=== PATIENT | female | born 1970 | race Caucasian/White ===

== ENCOUNTER 2017-08-21 16:11 | Emergency (ER) | payer OTHER ==
[~2017-08-21] VITALS: Ht 160 cm; Wt 85.3 kg
[~2017-08-21 16:11] MED LIST: ALPRAZOLAM0.25 M1 PO; SERTRALINE HCL50 MG PO
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
[2017-08-21 18:59] LABS: ABSOLUTE BASOPHIL COUNT 0 /CUMM (0.0-0.2); ABSOLUTE EOSINOPHIL COUNT 0 /CUMM (0.0-0.7); ABSOLUTE GRANULOCYTE CT 7.5 /CUMM (1.4-6.5); ABSOLUTE LYMPH COUNT 1.1 /CUMM (1.2-3.4); ABSOLUTE MONOCYTE COUNT 0.4 /CUMM (0.10-0.60); BASOPHIL % 0.1 % (0.0-2.0); EOSINOPHIL % 0.4 % (0-5); GRANULOCYTE % 82.4 % (42.2-75.2); HEMATOCRIT 41.4 % (37-47); MEAN CORPUSCULAR HGB CONC 33.3 G/DL (33.0-37.0); MEAN PLATELET VOLUME 7.5 FL (7.4-10.4); PLATELET COUNT 280 /CUMM (130-400); RBC DISTRIBUTION WIDTH 14.5 % (11.5-14.5); WHITE BLOOD CELL COUNT 9.2 /CUMM (4.8-10.8)
[2017-08-21 19:20] VITALS: BP 171/91
== END 2017-08-21 20:36 ==
LOC: ERH 16:11
PROVIDERS: Physician Assistant Medical
DX: F22 Delusional disorders (principal); F10.10 Alcohol abuse, uncomplicated
CPT/HCPCS: 80307; 81003; 81025; G0480

== ENCOUNTER 2017-09-18 05:50 | Emergency (ER) | payer OTHER ==
--- NOTE | 2017-09-18 06:01 | ED UPPER/LOWER EXTREMITY COMPL ---
History of Present Illness General Chief Complaint: Lower Extremity Problems Stated Complaint: RIGHT KNEE PAIN Source: patient Exam Limitations: no limitations Vital Signs & Intake/Output Vital Signs & Intake/Output . Allergies Coded Allergies: ciprofloxacin (From CIPRO) (Severe, RASH 08/21/17) sulfamethoxazole (From BACTRIM) (Severe, RASH 08/21/17) trimethoprim (From BACTRIM) (Severe, RASH 08/21/17) Reconcile Medications Alprazolam 0.25 MG TABLET 0.5-2 TAB PO PRN ANXIETY (Reported) Oxycodone HCl/Acetaminophen (Percocet 5-325 MG Tablet) 5 MG-325 MG TABLET 1 TAB PO 4XDP PRN PAIN six..[id number] Sertraline HCl 50 MG TABLET 1 TAB PO DAILY MENTAL HEALTH (Reported) Triage Nurses Notes Reviewed? yes Onset: Gradual Duration: week(s):, waxing and waning Timing: recent history Severity: moderate Pain/Injury Location: Right: Knee. Method of Injury: unknown Modifying Factors: Improves With: rest. Worsens With: movement. Associated Symptoms: right knee pain HPI: 47 yo woman presents with right knee pain x many months. She notes that it was getting worse over the past 2-3 days. "I was doing lots of bending over the weekend." No new trauma. She notes no significant swelling or redness or weakness. She is otherwise well. Past History Travel History Traveled to [place] past 21 day No Medical History Any Pertinent Medical History? see below for history Neurological: NONE EENT: NONE Cardiovascular: NONE Respiratory: NONE Gastrointestinal: NONE Hepatic: NONE Renal: NONE Musculoskeletal: NONE Psychiatric: anxiety, OCD Endocrine: NONE Blood Disorders: NONE Cancer(s): NONE COMPENSATION ASSOCIATE/Reproductive: NONE Surgical History Surgical History: none Psychosocial History What is your primary language Syriac Family History Hx Contributory? No Review of Systems Review of Systems Constitutional: Reports: no symptoms. EENTM: Reports: no symptoms. Respiratory: Reports: no symptoms. Cardiovascular: Reports: no symptoms. Gastrointestinal/Abdominal: Reports: no symptoms. Genitourinary: Reports: no symptoms. Musculoskeletal: Reports: no symptoms. Skin: Reports: no symptoms. Neurological/Psychological: Reports: no symptoms. Hematologic/Endocrine: Reports: no symptoms. Immunological: Reports: no symptoms. All Other Systems: Reviewed and Negative Physical Exam Physical Exam General Appearance: well developed/nourished, mild distress Head: atraumatic Eyes: Bilateral: PERRL, EOMI. Ears, Nose, Throat: normal pharynx, normal ENT inspection, hearing grossly normal Neck: normal inspection, supple Cardiovascular/Respiratory: regular rate/rhythm Back: normal inspection Knee Right: no signficiant effusion. ligaments are stable, but elicit discomfort with medial stress. pain also elicited with surinder test. Skin: intact, normal color, warm/dry Lymphatic: no anterior cervical logan Progress Differential Diagnosis: sprain, tendon injury, meniscus injury Plan of Care: discussed at length... pt has elastic brace... pt referred to ortho to consider MRI. gave short course of percocet. Departure Departure Disposition: HOME OR SELF CARE Condition: Stable Clinical Impression Primary Impression: Right knee pain Referrals: Krupa Valdez DO (PCP/Family) Departure Forms: Customer Survey General Discharge Information Prescriptions: Current Visit Scripts Oxycodone HCl/Acetaminophen (Percocet 5-325 MG Tablet) 1 TAB PO 4XDP PRN PAIN #6 TAB six..[id number] Comments ligaments are stable, but pt merits ortho eval given the duration of her discomfort.
[2017-09-18 06:02] VITALS: BP 138/89
[2017-09-18] MEDS ORDERED: PERCOCET 5-3251 EACH PO (06:11)
== END 2017-09-18 06:16 ==
LOC: ERH 05:50
DX: M25.561 Pain in right knee (principal)